=== PATIENT | female | born 1965 | race Caucasian/White ===

== ENCOUNTER → 2019-02-09 | Outpatient (CLI) | payer OTHER ==
--- NOTE | 2019-02-10 02:35 | MR ---
EXAMINATION TYPE: MR brain/cspine wo/w DATE OF EXAM: 02/09/2019 COMPARISON: HISTORY: Cervical herniated disc, Memory loss TECHNIQUE: Multiplanar, multisequence images of the brain and brainstem is performed without and with IV contras t, utilizing 7.5 mL intravenous Gadavist . FINDINGS: EXAMINATION TYPE: MR brain/cspine wo/w DATE OF EXAM: 02/09/2019 COMPARISON: NONE There is previous MR scan cervical spine 11/30/2017. HISTORY: 52-year-old female with neck pain, cervicalgia TECHNIQUE: 60 FINDINGS: Multiplanar multiecho imaging of the brain and cervical spine was performed without and wit h IV contrast. Ventricles have normal size. There is no mass effect nor midline shift. There is no sign of intracran ial hemorrhage. On the FLAIR images there are a few foci of increased signal in the periventricular w jerry matter in the frontal lobes. Total number is approximately 5 and largest measures 5 mm. The brai nstem is intact. Cerebellum appears intact. Corpus callosum is intact. Sella turcica appears normal. There is no evidence of cortical infarct. The contrast images show no pathologic enhancement. There is normal enhancement of the venous sinuses . Cervical vertebra have normal alignment. There is posterior disc bulging and herniation at C4-5 and C 5-6 and C6-7. There is developmentally adequate spinal canal and no significant spinal stenosis. The narrowest point of the spinal canal is 8 mm at C6-7. Cervical spinal cord has normal signal pattern. There is no edema. There is no focal bone destruction. Contrast images show no pathologic enhancement of the cervical spine. IMPRESSION: Scattered white matter high signal foci as above are nonspecific and could relate to chronic small ve ssel ischemia. I think demyelinating disease is less likely. There is posterior mild disc herniation from C4 to C7. There is increased disc herniation at all 3 le vels compared to old MR scan. No significant narrowing of the spinal canal. Normal cervical spinal co rd. There is some uncovertebral spurring and right-sided neural foraminal narrowing at C5-6. There is left side C6-7 neural foraminal narrowing due to uncovertebral spurring.
== END | disposition home or self-care (01) ==
LOC: RADMRIMAIN 12:23
PROVIDERS: ATTEND Psychiatry & Neurology Neurology
DX: M48.02 Spinal stenosis, cervical region (principal); M50.221 Other cervical disc displacement at C4-C5 level; R90.89 Other abnormal findings on diagnostic imaging of central nervous system; R41.3 Other amnesia
CPT/HCPCS: 70553; 72156; A9585

== ENCOUNTER → 2019-03-10 | Outpatient (CLI) | payer OTHER ==
[2019-03-10 12:38] VITALS: BP 134/77; PULSE 61; RESP 16
--- NOTE | 2019-03-10 14:15 | P.PAINCN ---
History of Present Illness - Reason for Consult Consult date: 03/10/19 - Chief Complaint Headaches - History of Present Illness This is a 53-year-old female who is referred to our clinic by her neurologist for bilateral occipital nerve blocks. She states that her headaches significantly worsen in 2014 after she fell. The headaches are in the bilateral posterior head and occiput, her pain is worse on the left side versus the right side. She also complains of a stiff neck she has done physical therapy which is marginally helped. For these headaches she has taken Advil and Flexeril daily when necessary. Given that her headaches continue to not be well controlled, her neurologist Center here for occipital nerve blocks. Of note she does have a history of alcohol abuse, and once avoid opiate medications which I agree with. Past Medical History Past Medical History: Cancer, Osteoarthritis (OA) History of Any Multi-Drug Resistant Organisms: None Reported Past Surgical History: Appendectomy, Breast Surgery Additional Past Surgical History / Comment(s): mastectomy 2006 Past Anesthesia/Blood Transfusion Reactions: No Reported Reaction Past Psychological History: Anxiety, Depression, PTSD Smoking Status: Former smoker Past Alcohol Use History: Heavy Additional Past Alcohol Use History / Comment(s): recovering alcoholic x6 years Past Drug Use History: Marijuana Additional Drug Use History / Comment(s): "marijuana a long time ago" - Past Family History Father Family Medical History: Cancer, Congestive Heart Failure (CHF), Hypertension Additional Family Medical History / Comment(s): alcohol abuse, gout bladder cancer Medications and Allergies Home Medications Medication Instructions Recorded Confirmed Type Cyclobenzaprine [Flexeril] 5 mg PO BID PRN 03/10/19 03/10/19 History Allergies Allergy/AdvReac Type Severity Reaction Status Date / Time No Known Allergies Allergy Verified 03/10/19 12:18 Physical Exam Vitals: Vital Signs Pulse Resp BP Pulse Ox 03/10/19 12:21 61 16 134/77 98 Intake and Output 03/09/19 03/10/19 03/10/19 22:59 06:59 14:59 Other: Weight 61.235 kg Vital Signs: Reviewed in EMR GENERAL: Well appearing, in no acute distress, PSYCH: Mood and affect is appropriate. Awake, alert, and oriented SKIN: Skin color, texture, turgor normal, no rashes or lesions HEENT: Normocephalic, atraumatic. EOM intact CV: No pedal edema RESP: Respirations are unlabored, no audible wheezing GI: Abdomen non-distended MUSCULOSKELETAL: Bilateral upper and lower extremity strength is normal and symmetric. No atrophy or tone abnormalities are noted. Neck: Some tenderness to palpation is a high cervical paraspinals, she does have some tenderness with deep palpation the occiput region. Extremities: Peripheral joint ROM is full and pain free without obvious instability or laxity in all four extremities. No edema or skin discolorations noted. Gait: Gait is anantalgic NEUR: No loss of sensation is noted. Cranial nerves are grossly intact. Results Results: Brain and cervical MRI from 02/09/2019. There is posterior mild disc herniation from C4 to C7. There is some uncovertebral spurring and right-sided neural foraminal narrowing at C5-C6. There is left-sided C6-C7 neural foraminal narrowing due to uncovertebral spurring. Assessment and Plan Assessment: Assessment: 1. Occipital headaches 2. Cervical spondylosis 3. History of alcohol abuse, in remission Plan: 1. Explanation: I explained to her that headaches and be difficult to treat, however symptoms with headaches in the occiput, would be consistent with occipital neuralgia, given this information she would like to proceed with occipital nerve blocks. 2. Opioid agreement: None 3. Counseling: She should continue to be active 4. Procedures: In occipital block, she would prefer to have the procedures done without any steroid 5. Consultations: None 6. Investigations: Was reviewed 7. Medications: Encouraged patient to have discussions with primary care physician 8. Disposition: For her procedure, she may do the procedure without sedation , PQRS Measure Charge Sheet Measure #226: Tobacco Use: Screen & Cessation Intervention: Pt not a tobacco user Measure #111: Pneumonia Vaccination: Pneumococcal vaccine NOT administered or previously given Measure #47: Advance Care Plan: Advance care planning discussed & documented, pt chose/unable to give Measure #131: Pain Assessment & Follow-up: Pain positive & plan documented, Follow-up scheduled Measure #431: Unhealthy Alcohol Use Preventative Care & Scrn: Patient not identified as an unhealthy alcohol user PQRS Narrative: Smoking Status Former smoker Blood Pressure 134/77 Pain Intensity [Bilateral 2 Posterior Head] Scale Used Numeric (1 - 10) Hx Alcohol Use (MH) Yes: hx of etoh abuse 6 years ago Home Medications: Ambulatory Orders Cyclobenzaprine [Flexeril] 5 mg PO BID PRN 03/10/19
== END ==
LOC: PNWHC3 12:11
PROVIDERS: ATTEND Student in an Organized Health Care Education/Training Program
DX: R51 Headache (principal); M47.812 Spondylosis without myelopathy or radiculopathy, cervical region; F10.11 Alcohol abuse, in remission; Z87.891 Personal history of nicotine dependence; Z79.899 Other long term (current) drug therapy
CPT/HCPCS: 99201

== ENCOUNTER 2019-03-30 07:35 | Day surgery (SDC) | payer OTHER ==
[2019-03-27 08:57] VITALS: BMI 21.9
[~2019-03-30 07:35] MED LIST: LACTATED RINGERS 1,000 ML IV SCH
[2019-03-30 08:25] VITALS: TEMP 97.7
--- NOTE | 2019-03-30 09:47 | P.PCN ---
Date of Procedure: 03/30/19 Procedure(s) Performed: Pre-operative diagnosis: Bilateral occipital neuralgia Post Operative Diagnosis same Procedure: Bilateral occipital nerve block ANESTHESIA: none EBL: Minimal PROCEDURE INDICATION: The patient with neck pain and headache secondary to occipital neuralgia unresponsive to conservative treatments. PROCEDURE DESCRIPTION / TECHNIQUE: The patient was seen and identified in the preoperative area. Risks, benefits, complications, and alternatives were discussed with the patient, the patient agreed to proceed with the procedure and signed the consent. IV was started. Vital signs remained stable throughout the procedure. Patient was taken to the OR and time out was completed. The patient was placed in the seated position on the procedure table. The cervical area and Bilateral occiptial area were prepped with alcohol swab. Vital signs were closely monitored during the procedure. The Bilateral occiptal ridge was palpated and was then accessed with a 25 G needle. Then after negative aspiration, 3 ml of the block solution containing 2 ml of ropivacaine 0.5% and Depo-Medrol 40 mg was injected on need side. A total of 80 mg of Depo-Medrol was used Needle was withdrawn intact. Patient tolerated procedure well. No acute complications.
[2019-03-30 09:52] VITALS: BP 124/71; PULSE 71; RESP 16
== END 2019-03-30 09:40 | disposition home or self-care (01) ==
LOC: ORPAIN 07:35
PROVIDERS: ATTEND Anesthesiology
DX: M54.81 Occipital neuralgia (principal); M47.892 Other spondylosis, cervical region; F10.11 Alcohol abuse, in remission; M19.90 Unspecified osteoarthritis, unspecified site; Z90.10 Acquired absence of unspecified breast and nipple; F41.9 Anxiety disorder, unspecified; F32.9 Major depressive disorder, single episode, unspecified; F43.10 Post-traumatic stress disorder, unspecified; Z87.891 Personal history of nicotine dependence; Z82.49 Family history of ischemic heart disease and other diseases of the circulatory system; Z80.52 Family history of malignant neoplasm of bladder; Z81.1 Family history of alcohol abuse and dependence
CPT/HCPCS: 64405; J1030

== ENCOUNTER 2019-04-27 06:36 | Day surgery (SDC) | payer OTHER ==
[2019-04-17 15:11] VITALS: BMI 21.6
[~2019-04-27 06:36] MED LIST changes: +BUPIVACAINE (PF) 0.5% 30 ML VIAL ONE; +methylPREDNISolone ACETATE 40 MG/ML 1 ML VIAL ONE
[2019-04-27 06:59] VITALS: RESP 16; TEMP 98.1
[2019-04-27 07:47] VITALS: BP 121/80; PULSE 73
--- NOTE | 2019-04-27 08:18 | P.PCN ---
Date of Procedure: 04/27/19 Procedure(s) Performed: Pre-operative diagnosis: Bilateral occipital neuralgia Post Operative Diagnosis same Procedure: Bilateral occipital nerve block ANESTHESIA: none EBL: Minimal PROCEDURE INDICATION: The patient with neck pain and headache secondary to occipital neuralgia unresponsive to conservative treatments. PROCEDURE DESCRIPTION / TECHNIQUE: The patient was seen and identified in the preoperative area. Risks, benefits, complications, and alternatives were discussed with the patient, the patient agreed to proceed with the procedure and signed the consent. IV was started. Vital signs remained stable throughout the procedure. Patient was taken to the OR and time out was completed. The patient was placed in the seated position on the procedure table. The cervical area and Bilateral occiptial area were prepped with alcohol swab. Vital signs were closely monitored during the procedure. The Bilateral occiptal ridge was palpated and was then accessed with a 25 G needle. Then after negative aspiration, 3 ml of the block solution containing 2 ml of ropivacaine 0.5% and Depo-Medrol 40 mg was injected on need side. A total of 80 mg of Depo-Medrol was used Needle was withdrawn intact. Patient tolerated procedure well. No acute complications.
== END 2019-04-27 07:55 | disposition home or self-care (01) ==
LOC: ORPAIN 06:36
PROVIDERS: ATTEND Anesthesiology
DX: M54.81 Occipital neuralgia (principal); M50.30 Other cervical disc degeneration, unspecified cervical region
CPT/HCPCS: 64405

== ENCOUNTER 2019-06-15 08:01 | Day surgery (SDC) | payer OTHER ==
[2019-06-12 11:20] VITALS: BMI 20.9
[~2019-06-15 08:01] MED LIST changes: -BUPIVACAINE (PF) 0.5% 30 ML VIAL ONE; +LIDOCAINE 1% 20 ML VIAL (10MG/ML) FOR IV START INTRADERMA PRN; -methylPREDNISolone ACETATE 40 MG/ML 1 ML VIAL ONE
[2019-06-15] MEDS ORDERED: TRIAMCINOLONE ACETONIDE 40 MG/ML 1 ML VIAL ONE (08:29)
[2019-06-15] MEDS ORDERED: ROPIVACAINE 5MG/ML 20ML VIAL ONE (08:29)
[2019-06-15] MEDS ORDERED: IV FLUID CONTINUATION 1,000 ML IV ONE (09:52)
--- NOTE | 2019-06-15 10:02 | P.PCN ---
Date of Procedure: 06/15/19 Procedure(s) Performed: Preoperative diagnoses= 1-bilateral Greater occipital neuralgia Postoperative diagnoses= same as preoperative diagnosis. Procedure= Bilateral Greater occipital nerve block Anesthesia= none Estimated blood loss=minimal. Procedure indication= the patient had a history of severe chronic neck pain ,and headache, diagnosed with occipital neuralgia exam was positive for severe tenderness over the occipital nerve bilaterally, she will be a good candidate occipital nerve block, patient failed conservative management Procedure description= the patient was seen and identified in the preoperative holding area, risks and benefits and alternative of the procedure and possible complications discussed with the patient, and he agreed with the preceding, patient signed the consent, an IV was started, and vital signs were monitored and were stable throughout the procedure, patient was placed in the sitting position or table and the neck area was prepped and draped with a sterile fashion, vital signs were closely monitored during the procedure, 25-gauge needle advanced 1 inch lateral to the occipital protuberance on the right side, at the location of the right occipital nerve , then after negative aspiration for heme and CSF and there was no paresthesia during the injection, 6 ml of Robivacaine 0.5% and 40 mg of Kenalog injected after negative aspiration, the needle removed, and the entire same procedure was repeated for the left Greater occipital nerve. And after I did the block on the left side, when I removed the needle and found and that part of the needle still under the skin, multiple attempts done to remove it was not successful, then I made small incision using 11 blade, I did try to remove the needle with the forceps was not successful by using fluoroscopy guidance, I was able to visualize the needle with the fluoroscopy ,but I was not able to remove it, then the incision closed using 3-0 Vicryl, and Band-Aid, and I consulted the spine surgeon Dr. Endy Brown , and he will see the patient today and he will remove the foreign body ,the patient transported to recovery room in stable condition . Complications= retained foreign body(part of the 25-gauge needle ) in the left occipital area under the skin.
--- NOTE | 2019-06-15 10:32 | FL ---
Fluoroscopy HISTORY: Pain 69 seconds fluoroscopy time supplied to the referring clinician. 4 intraoperative C-arm images docum ent the procedure. See dictated report from anesthesia.
[2019-06-15] MEDS ORDERED: MIDAZOLAM 2 MG/2 ML VIAL ONE (12:05)
[2019-06-15] MEDS ORDERED: DEXAMETHASONE SOD PHOS (MDV) 100 MG/10 ML VIAL ONE (12:05)
[2019-06-15] MEDS ORDERED: PROPOFOL 10 MG/ML 20 ML VIAL IV ONE (12:05)
[2019-06-15] MEDS ORDERED: LIDOCAINE 1% INJ 10MG/ML (20 ML MDV) ONE (12:05)
[2019-06-15] MEDS ORDERED: PHENYLEPHRINE-0.9% NACL SYG 1 MG/10 ML SYRINGE ONE (12:05)
[2019-06-15] MEDS ORDERED: SUCCINYLCHOLINE CHLORIDE 100 MG/5 ML SYR IV ONE (12:05)
[2019-06-15] MEDS ORDERED: ONDANSETRON 4 MG/2 ML VIAL ONE (12:05)
--- NOTE | 2019-06-15 12:07 | P.HPOR ---
History of Present Illness H&P Date: 06/15/19 Chief Complaint: Neck pain with retained foreign body status post occipital injection Patient is very pleasant 53-year-old female with long-standing history of neck pain and headaches. Patient had been treated conservatively in the past for her neck pain and for her headaches with various degrees of relief. She had been referred to interventional pain management and had undergone occipital blocks in the past with good results. She is admitted today for repeat occipital injections with Dr. Blandon. I spoke with Dr. Blandon in regards to this as she was having today a procedure and had an occipital block on the right side without incident but when doing the block on the left side when I removed the needle they noted that part of the needle had broken off underneath the skin at the posterior area of her neck below her occiput. He felt that the needle was quite superficial and he tried to remove it but was unable to. We are counseled in this regard for assistance for removal of the foreign body and posterior neck. During the procedure there was no evidence of any neural involvement. There is no epidural injection. The patient denies any new changes in her upper extremity is. She has some pain at her neck which was around the new incision that she had when he tried removed needle also the same as her chronic issues in general. She is not having new symptoms. Review of Systems Denies any new weakness numbness or tingling. Denies any change in neurologic status. Denies any nausea or vomiting denies any chest pain shortness breath Past Medical History Past Medical History: Cancer, Osteoarthritis (OA) Additional Past Medical History / Comment(s): BREAST CANCER , NECK PAIN AND HEADACHES ,. History of mastectomy. Remote history of alcohol History of Any Multi-Drug Resistant Organisms: None Reported Past Surgical History: Appendectomy, Breast Surgery, Tubal Ligation, Uterine Ablation Additional Past Surgical History / Comment(s): LEFT mastectomy 2006, LAPAROSCOPIC EXAM ,LEFT BREAST RECONSTRUCTION, Past Anesthesia/Blood Transfusion Reactions: Motion Sickness, Postoperative Nausea & Vomiting (PONV) Smoking Status: Former smoker - Past Family History Father Family Medical History: Cancer, Congestive Heart Failure (CHF), Deep Vein Thrombosis (DVT), Hypertension Additional Family Medical History / Comment(s): alcohol abuse, gout, bladder cancer Medications and Allergies Home Medications Medication Instructions Recorded Confirmed Type Cyclobenzaprine [Flexeril] 5 mg PO BID PRN 03/10/19 06/15/19 History Allergies Allergy/AdvReac Type Severity Reaction Status Date / Time No Known Allergies Allergy Verified 06/15/19 08:16 Physical Examination Osteopathic Statement: *. No significant issues noted on an osteopathic structural exam other than those noted in the History and Physical/Consult. - C Spine: dermatomal strength & reflexes bilateral Shoulder strength: flexion: 5/5 (At the patient's neck there is dressing over the left posterior neck. There is no obvious drainage. There is no purulence. Her upper extremity have full active and passive range of motion with 5 out of 5 muscle strength. There is no neurologic deficit. 2+ over 4 deep tendon reflexes. No hyperreflexia. Negative Ema's.) Assessment and Plan Assessment: Retained foreign body at the soft tissue posterior cervical spine status post occipital injection today with pain management Chronic neck pain with headaches and occipital headaches Plan: Retained foreign body at the soft tissue posterior cervical spine status post occipital injection today with pain management Chronic neck pain with headaches and occipital headaches Unfortunately the patient had an incident today during her interventional pain management procedure where a small portion of the needle broke off at her soft tissue after her occipital injection. There were attempts with pain management to remove the needle however there were unsuccessful and she still has retained foreign body. I think that we should remove the foreign body surgically in the operating room. This would give us the best chance of removal with the patient comfortable and while minimizing accessory damage. I discussed this with patient at length she understands that this is not meant to treat her chronic neck issues and neck pain. Our procedure is to remove the foreign body and she understands that this will require some dissection into the soft tissue for this. We will be using C-arm guidance as well. I anticipate that the patient will be able to mobilize and be able to be discharged home postoperatively after recovery in post anesthesia care unit. I discussed case with Dr. Blandon as well. I discussed the risks, patient alternatives and benefits and the patient agrees to proceed with surgical intervention for removal of foreign body posterior cervical spine. We'll proceed as soon as possible.
[2019-06-15] MEDS ORDERED: ceFAZolin 1,000 MG VIAL IVPB ONE (12:31)
[2019-06-15] MEDS ORDERED: LACTATED RINGERS 1,000 ML IV ONE (12:44)
[2019-06-15] MEDS ORDERED: LIDOCAINE 2% INJ 20 MG/ML SQ ONE (12:49)
[2019-06-15] MEDS ORDERED: LIDOCAINE 0.5%-EPI 1:200,000 50 ML VIAL SQ ONE (12:50)
[2019-06-15] MEDS ORDERED: ACETAMINOPHEN TAB 325 MG TAB PO PRN (13:42)
[2019-06-15] MEDS ORDERED: IBUPROFEN 600 MG TAB PO PRN (13:42)
[2019-06-15] MEDS ORDERED: ONDANSETRON 4 MG/2 ML VIAL IVP PRN (13:42)
[2019-06-15] MEDS ORDERED: HYDROmorphone 0.5 MG/0.5 ML SYRINGE IVP PRN (13:42)
[2019-06-15] MEDS ORDERED: HYDROcodone/APAP 5-325MG 1 EACH TAB PO PRN (13:42)
[2019-06-15] MEDS ORDERED: BENZOCAINE/MENTHOL LOZENG 1 EACH LOZENGE MUCOUS MEM PRN (13:42)
[2019-06-15] MEDS ORDERED: KETOROLAC 30 MG/ML 1 ML VIAL IVP PRN (13:43)
[2019-06-15] MEDS ORDERED: SODIUM CHLORIDE 0.9% 1,000 ML IV SCH (13:45)
[2019-06-15 13:50] VITALS: TEMP 99.2
--- NOTE | 2019-06-15 13:56 | P.OP ---
Date of Procedure: 06/15/19 Preoperative Diagnosis: Retained foreign body posterior cervical neck soft tissues Chronic neck pain with occipital headaches Postoperative Diagnosis: Same Anesthesia: GETA Pathology: none sent Description of Procedure: BRIEF OPERATIVE NOTE Preoperative Diagnosis:Retained foreign body posterior cervical neck soft tissues Chronic neck pain with occipital headaches Postoperative Diagnosis:Retained foreign body posterior cervical neck soft tissues Chronic neck pain with occipital headaches Procedure: Removal of retained foreign body (needle) from posterior cervical spine soft tissue, deep Surgeon: Dr. Brown Customs [employer] Border [employer] Officer: Domenic Connolly is present throughout the entire the case persistence during positioning, dissection, exposure, visualization, and all crucial elements of the case as well as closure. Anesthesia: General anesthesia per Dr. Laurent Estimated blood loss: Approximately 75 mL Complications: None apparent Components implanted: None Fluoroscopy time: Approximately 1-1/2 minutes Disposition: To recovery room in good stable condition. OPERATIVE INDICATIONS The patient is very pleasant 53-year-old female who has long-standing history of neck pain and occipital pain with headaches. Patient had evaluation and presented today to the pain clinic for occipital injections. She had undergone injections in the past which had given her bit benefit. She had her procedure as per her note with Dr. Blandon however upon removing the needle from the left side after her occipital injection they found that the needle had broken off and she had retained the needle in her soft tissue. C-arm imaging confirmed this. They did try to remove the needle at the time of the injection but retrievable attempts were unsuccessful. We're counseled in regard to removing the needle foreign body from the posterior cervical soft tissues. We're able to see the patient very quickly and prepare her for surgical removal of the needle. The images were reviewed and the needle was somewhat deep into the soft tissue and into the musculature but not near any neurologic structures and did not seem to pose significant risk for any of the neurologic structures or vessels. I felt that we could perform exploration of the wound area and removal of the needle in the operating room with surgical intervention. We discussed various treatment options including surgery, and the patient wishes to proceed with surgery We discussed the risk, patient's alternatives and benefits of surgery including but not limited to, risk of bleeding risk of infection, risk of need for further surgery, risk of decreased, loss of motion, muscle function, malunion nonunion, hardware failure, nerve damage, paralysis, heart attack, and . OPERATIVE SUMMARY After discussing all the risks, patient alternatives and benefits at length, the patient elected to proceed with surgical intervention, signed informed consent, and presented for their procedure. The patient was seen and examined in the preoperative holding area and the surgical site was marked. The patient was given antibiotics and brought to the operating room. The patient was sedated and intubated by anesthesia in standard sterile fashion. The patient was positioned on the operating room table in a prone position being careful to pad any bony prominences and pressure points. She was on longitudinal chest rolls with her head and face and a good neutral alignment and positioning and in a well-padded longwall headgate operator to keep her neck in good neutral alignment and position Once the airway and C-spine were stabilized the patient's right arm was padded and tucked at her side as she had some limited motion at her right shoulder. Her left upper extremity was able to placed in a 9090 position on a well-padded well molded arm gan., with her shoulders gently taped. The head was placed gently with the neck in good neutral alignment and position. We were careful to maintain the patient's cervical spine and good neutral alignment and position throughout. I had to shave small part of her tear posteriorly in order to get good surgical field in sterile position. The patient was prepped and draped in a normal standard fashion with the post erior cervical area exposed. An appropriate timeout and keystone protocol performed. We were able to proceed with the surgery. I was able to remove the stitches that were placed and the 1-1/2 cm incision earlier. The incision was clean. The stitches were removed. I made some attends for a gross evaluation of the incision site in the wound. I was able to probe into the area with metastases and with hemostats. There is some bleeding at the site. I was able to cauterize this with Bovie electric cauterization. The needle was not visualized. We had in the room C-arm images of the needle itself as well. We brought in C-arm guidance and it was easy to see that the needle was somewhat deep into the muscular tissue at the posterior neck. It did not seem to be moving into any position to cause any neurologic risk or any vascular risk. I decided to extend the incision to approximately 2 cm transversely at the site as the initial incision had been transverse. I was able to dissect down into the subcu tissue and then down into the muscle tissue as well. There are some bleeding that I was able to cauterize appropriately. It took some dissection deep into the cervical musculature. C-arm guidance was utilized multiple times in order to them straight appropriate position of the inch mentation on the needle. As able to eventually get a hold of the needle near the end with a hemostat area it was very difficult to visualize. I was able to dissect out further portions of the needle so that it became more mobile. The needle started to been somewhat and I had good metal bonding assembler of the needle. I was able to then remove the needle in total. The needle was bent where the hemostat was holding. I was able to see the tip of the needle as well as the broken hub. The needle was intact. C-arm guidance was again utilized which showed no further remnants of any foreign body or any needle in the cervical soft tissue. With the needle fully removed and no further foreign body within the tissue, the wound was copiously irrigated and suctioned dry. During the procedure we try to maintain as much bony structures possible and limit the dissection as much as possible. We're able to close the subcu tissue with 2-0 Vicryl. Subcuticular tissues closed with 4-0 Vicryl wound is clean and dried and dressed with exophin glue and Silvadene dressing. The patient was woken up by anesthesia, extubated, transferred back gently to their hospital bed and brought to the recovery room in good stable condition. The patient will be able to be discharged to home after appropriate postope rative care, medical management and monitoring in the postanesthesia care unit. We will continue to follow them closely about the postoperative course.
--- NOTE | 2019-06-15 14:04 | XR ---
Limited cervical spine HISTORY: Foreign body removal 3 intraoperative C-arm images document the procedure
--- NOTE | 2019-06-15 14:05 | FL ---
Fluoroscopy HISTORY: Pain 61 seconds fluoroscopy time supplied to the referring clinician. 3 intraoperative C-arm images docum ent the procedure. See dictated report from anesthesia.
[2019-06-15] MEDS ORDERED: IBUPROFEN 200 MG TAB PO ONE (14:41)
[2019-06-15 15:21] VITALS: BP 119/78; PULSE 90; RESP 18
== END 2019-06-15 16:12 | disposition home or self-care (01) ==
LOC: ORPAIN 08:01
PROVIDERS: ATTEND Specialist
DX: G89.29 Other chronic pain (principal); M54.81 Occipital neuralgia; T81.50 Unspecified complication of foreign body accidentally left in body following procedure; M19.90 Unspecified osteoarthritis, unspecified site; Z85.3 Personal history of malignant neoplasm of breast; Z90.12 Acquired absence of left breast and nipple; Z98.51 Tubal ligation status; Z90.49 Acquired absence of other specified parts of digestive tract; Z87.891 Personal history of nicotine dependence; Z82.49 Family history of ischemic heart disease and other diseases of the circulatory system; Z80.52 Family history of malignant neoplasm of bladder; Z81.1 Family history of alcohol abuse and dependence
CPT/HCPCS: 20520; 72040; 64405; J2001 ×2; J2250; J3301; J2405; J0690; J1100; J2370; J0330; J2704; J2795

== ENCOUNTER → 2019-06-29 | Outpatient (CLI) | payer OTHER ==
[2019-06-29 12:44] VITALS: BP 109/71; PULSE 84; RESP 16
--- NOTE | 2019-06-29 13:09 | P.PN ---
Progress Note - Text Progress Note Date: 06/29/19 Progress note: 53-year-old female who presents for follow-up after bilateral occipital nerve blocks. She had an issue on the left side where the tip of the needle was broken off into the skin. She had Dr. Brown remove it successfully. Overall she's doing well with no pain or incidence of occipital neuralgia. She denies any new symptoms. She denies any gait abnormalities bowel or bladder incontinence. Overall she is doing better. She is concerned with follow-up r egarding return of her previous symptoms. We discussed repeating the procedure, also addressing possibly C2-C3 facet joint injections. Patient will contact clinic if and when symptoms return. Review of Systems: 1- Constitutional: No chills , no fever , no night sweats , no change of appetite, no lethargy 2- Ears: No ear ache, no ear discharge , no change in hearing 3-Nose, Mouth ,Throat; No bleeding gums, no sore throat , no epistaxis , no hoarseness , no voice change 4-Cardiovascular: Denies chest pain, no palpitation , no paroxysmal nocturnal dyspnea , no leg edema 5-Respiratory: Denies cough , no dyspnea , no hemoptysis , no sleep apnea, no wheezing 6-Gastrointestinal: No abdominal pain , no bloating , no change in bowel habits 7-Genitourinary: No hematuria , no discharge 8-Musculoskeletal: No gait dysfunction , report low back pain, reported lower extremities numbness and tingling sensation 9- Neurological: No ataxia , no aphasia ,no balance difficulties, no change in visions , no change in speech , no tremor . 10-Psychatric: depression , no suicidal ideation, 11-Hematologic: No easy bleeding, no easy brusing. 12-Integumentary: No brttle nails, no change hair , no hirsutism no depigmentation , no foot/leg ulcers . Vital Signs: Reviewed in EMR GENERAL: Well appearing, in no acute distress, PSYCH: Mood and affect is appropriate. Awake, alert, and oriented SKIN: Skin color, texture, turgor normal, no rashes or lesions HEENT: Normocephalic, atraumatic. EOM intact CV: No pedal edema RESP: Respirations are unlabored, no audible wheezing GI: Abdomen non-distended MUSCULOSKELETAL: Bilateral upper and lower extremity strength is normal and symmetric. No atrophy or tone abnormalities are noted. Neck: Some tenderness to palpation is a high cervical paraspinals, she does have some tenderness with deep palpation the occiput region. Extremities: Peripheral joint ROM is full and pain free without obvious instability or laxity in all four extremities. No edema or skin discolorations noted. Gait: Gait is unremarkable. NEUR: No loss of sensation is noted. Cranial nerves are grossly intact. Results Results: Brain and cervical MRI from 02/09/2019. There is posterior mild disc herniation from C4 to C7. There is some uncovertebral spurring and right-sided neural foraminal narrowing at C5-C6. There is left-sided C6-C7 neural foraminal narrowing due to uncovertebral spurring. Assessment and Plan Assessment: Assessment: 1. Occipital headaches 2. Cervical spondylosis 3. History of alcohol abuse, in remission Plan: 1. Explanation: I explained to her that headaches and be difficult to treat, however symptoms with headaches in the occiput, would be consistent with occipital neuralgia, given this information she would like to proceed with occipital nerve blocks. 2. Opioid agreement: None 3. Counseling: She should continue to be active 4. Procedures: None at the moment consider bilateral C2-C3 facet joint injections. 5. Consultations: None 6. Investigations: Was reviewed 7. Medications: Encouraged patient to have discussions with primary care physician 8. Disposition: Patient will contact clinic and return as necessary. , PQRS Measure Charge Sheet Measure #226: Tobacco Use: Screen & Cessation Intervention: Pt not a tobacco user Measure #111: Pneumonia Vaccination: Pneumococcal vaccine NOT administered or previously given Measure #47: Advance Care Plan: Advance care planning discussed & documented, pt chose/unable to give Measure #131: Pain Assessment & Follow-up: Pain positive & plan documented, Follow-up scheduled Measure #431: Unhealthy Alcohol Use Preventative Care & Scrn: Patient not identified as an unhealthy alcohol user PQRS Narrative: Smoking Status Former smoker Blood Pressure 134/77 Pain Intensity [Bilateral 2 Posterior Head] Scale Used Numeric (1 - 10) Hx Alcohol Use (MH) Yes: hx of etoh abuse 6 years ago
== END | disposition home or self-care (01) ==
LOC: PNWHC3 12:16
PROVIDERS: ATTEND Anesthesiology
DX: R51 Headache (principal); M47.812 Spondylosis without myelopathy or radiculopathy, cervical region; Z91.419 Personal history of unspecified adult abuse; Z87.891 Personal history of nicotine dependence
CPT/HCPCS: 99211

== ENCOUNTER → 2020-11-03 | Outpatient (CLI) | payer OTHER ==
--- NOTE | 2020-11-03 19:09 | CONS ---
CONSULTATION DATE OF SERVICE: 11/03/2020 55-year-old lady has been evaluated in the sleep center for sleep problems, which include snoring, awakening from sleep, significant excessive daytime sleepiness. Vivid dreams. HISTORY OF PRESENT ILLNESS/SLEEP-WAKE EVALUATION: The patient had a sleep study in another institution about 8 years ago which was negative for obstructive sleep apnea-hypopnea syndrome. SLEEP SCHEDULE: Her sleep schedule presently on week days from 8:30/9 p.m. to 5 a.m. and on weekends until 7:00 am. FALLING ASLEEP: Presently, she does not have significant problems with falling asleep, although has TV set in bedroom. DURING SLEEP: She sleeps from the back and side positions with mild snoring and awakenings from sleep with episodes of panic attack, heartburn and nocturia. Positive history of hypnagogic hallucinations. DURING THE DAY/SLEEP WAKE EVALUATION: In the morning patient wakes up tired, has difficulties to pay attention, falling asleep during the day, has problems with the memory, concentration, irritability, depression, anxiety, sexual dysfunction. [place] Sleepiness Scale significantly increased to 16. On days off, the patient is ready to take naps 3 or 4 times a day. Positive history of dreaming during naps. The patient works in the store as a cashiers supervisor and sometimes when she is counting some money, she may feel weakness and may loose some money. Differential diagnosis should include possibility of cataplexy. PAST MEDICAL HISTORY: Positive for seasonal allergies, depression, anxiety, mitral valve prolapse, acid reflux, left side breast carcinoma. Alcohol abuse in the past. PAST SURGICAL HISTORY: Left-sided mastectomy, hysterectomy, appendectomy. MEDICATIONS: Pristiq 50 mg once in the evening, and Benadryl medication for anxiety, patient does not remember the name. SOCIAL HISTORY: Positive for smoking for about 30 pack years, recently quit. Alcohol consumption: None at the present time. History of alcohol abuse in the past. FAMILY HISTORY: Positive for narcolepsy by 2 uncles on mother's side, heart problems, liver problems, and ulcers. REVIEW OF SYSTEMS: Awakenings from sleep, significant excessive daytime sleepiness. PHYSICAL EXAMINATION: GENERAL: lady without distress. BP 142/85, HR 65, RR 20, height 5 feet 6 inches, weight 153.4, temperature 97.5, oxygen saturation at room air 98%. BMI 24.6. HEENT: PERRLA, EOMI. Oropharynx extremely low position of soft palate. Mallampati 4. NECK: 14-1/2 inches in circumference. Neck: Supple, no JVD. Thyroid is not palpable. LUNGS: Clear to percussion and to auscultation. Good air exchange. No wheezing or rhonchi. HEART: S1, S2 regular. No murmurs, gallops, or rubs. ABDOMEN: Soft and nontender. Bowel sounds are present. No organomegaly appreciated. EXTREMITIES: No clubbing or cyanosis. CUTTER PLAST[employer] ROLLS: Awake, alert, and oriented X3. Cranial nerves 2 to 7 intact. There is no fasciculation or atrophy. noted. No focal deficits observed. IMPRESSION: 1. Mild snoring. Extremely low position of soft palate, episodes of awakenings from sleep. Possible obstructive sleep apnea-hypopnea syndrome, but a sleep study in the past was negative for obstructive sleep apnea-hypopnea syndrome at another institution. 2. Significant excessive daytime sleepiness. [place] Sleepiness Scale significantly increased to 16. On days off patient may take up to 3 or 4 naps. Possibly positive history of hypnagogic hallucinations, positive history of dreaming during naps. Positive family history of narcolepsy from mother side. Possibility of cataplexy. Patient losing money while work as a cashiers supervisor. Differential diagnosis include narcolepsy, possibly with cataplexy. PLAN: 1. Polysomnography for evaluation of patient's breathing during sleep. 2. Multiple sleep latency test if the sleep study will be negative for obstructive sleep apnea-hypopnea syndrome. 3. Sleep hygiene with regular time in bed for at least 7-1/2 to 8 hours. 4. No driving if feeling sleepiness. Thank you very much for referring this patient for consultation. Sincerely, Jesus Helms MD, PhD, FAASM Diplomat of [employer] [employer] Sleep Medicine Board of [place] [employer] Roll Up Operator of [facility] [place] MMODL / YOUNGN: [id number] /
== END | disposition home or self-care (01) ==
LOC: SLEEP 10:29
PROVIDERS: ATTEND Internal Medicine
DX: G47.8 Other sleep disorders (principal); R06.83 Snoring; F32.9 Major depressive disorder, single episode, unspecified; F41.9 Anxiety disorder, unspecified; Z91.09 Other allergy status, other than to drugs and biological substances; Z85.3 Personal history of malignant neoplasm of breast; Z87.891 Personal history of nicotine dependence; Z86.59 Personal history of other mental and behavioral disorders; Z90.12 Acquired absence of left breast and nipple; Z79.899 Other long term (current) drug therapy
CPT/HCPCS: 99211

== ENCOUNTER → 2020-11-11 | Outpatient (CLI) | payer OTHER ==
--- NOTE | 2020-11-11 12:02 | ECHOS ---
STRESS ECHOCARDIOGRAM INDICATION: Shortness of breath. CLINICAL INFORMATION: Baseline EKG shows sinus rhythm, normal axis, normal intervals. Patient exercised on Frantz protocol for a total of 9.5 minutes, achieving 11 METS, 82% of predicted maximal heart rate without chest pain or diagnostic ST-segment depression. CONCLUSIONS: 1. Good exercise tolerance. 2. Inconclusive EKG part of the stress test due to inability to attain target heart rate. MMODL / IJN: [id number] /
== END | disposition home or self-care (01) ==
LOC: RADNMMAIN 10:29
PROVIDERS: ATTEND Family Medicine
DX: R06.02 Shortness of breath (principal)
CPT/HCPCS: 93017

== ENCOUNTER → 2020-11-14 | Outpatient (CLI) | payer OTHER ==
--- NOTE | 2020-11-15 09:24 | ECHOF ---
Referral Reason:R06.02 shortness of breath, fatigue MEASUREMENTS -------- HEIGHT: 165.1 cm WEIGHT: 70.3 kg BP: IVSd: 1.0 cm (0.6 - 1.1) LVIDd: 3.9 cm (3.9 - 5.3) LVPWd: 1.1 cm (0.6 - 1.1) IVSs: 1.4 cm LVIDs: 2.9 cm LVPWs: 1.5 cm MV EXCURSION: 18.612 mm (> 18.000) MV EF SLOPE: 83 mm/s (70 - 150) EPSS: 0.3 cm MV E Iam: 0.54 m/s MV DecT: 246 ms MV A Iam: 0.52 m/s MV E/A Ratio: 1.03 RAP: 5.00 mmHg RVSP: 20.64 mmHg FINDINGS -------- Sinus rhythm. This was a technically good study. Pt has silcone breast inplants. LV size, wall thickness and systolic function are normal, with an EF greater than 55%. The left andrew tricular size is normal. The right ventricle is normal in size. Normal LA size by volume 22+/-6 ml/m2. The right atrial size is normal. The aortic valve is trileaflet, and appears structurally normal. No aortic stenosis or regurgitation. Mild mitral regurgitation is present. Mild tricuspid regurgitation present. Right ventricular systolic pressure is normal at < 35 mmHg. There is no pulmonic regurgitation present. There is no pericardial effusion. CONCLUSIONS -------- 1. Pt has silcone breast inplants. 2. LV size, wall thickness and systolic function are normal, with an EF greater than 55%. 3. The left ventricular size is normal. 4. The right ventricle is normal in size. 5. Normal LA size by volume 22+/-6 ml/m2. 6. The right atrial size is normal. 7. The aortic valve is trileaflet, and appears structurally normal. No aortic stenosis or regurgitati on. 8. Mild mitral regurgitation is present. 9. Mild tricuspid regurgitation present. 10. There is no pericardial effusion. MACHINE PACKAGER: Karolina Saleh RDCS
== END | disposition home or self-care (01) ==
LOC: RADECHMAIN 11:56
PROVIDERS: ATTEND Family Medicine
DX: I08.1 Rheumatic disorders of both mitral and tricuspid valves (principal); Z98.82 Breast implant status
CPT/HCPCS: 93306

== ENCOUNTER → 2021-02-22 | Outpatient (CLI) | payer OTHER ==
--- NOTE | 2021-02-23 13:57 | SFUN ---
SLEEP CENTER FOLLOW UP NOTE DATE OF SERVICE: 02/22/2021 This 55-year-old lady has been followed in Sleep Center for treatment of significant excessive daytime sleepiness. Recently the patient had a polysomnogram with multiple sleep latency test. The patient came in to discuss results of the sleep studies and following plan. I discussed the results of her sleep studies with the patient in detail. Polysomnogram did not show any significant abnormalities of respiration; apnea-hypopnea index only 0.7 and oxygen level was above 90%, which is totally normal. No periodic limb movements have been documented also. Patient slept during the test for 7 hours 41 minutes. Multiple sleep latency test on the following day showed short sleep latency; mean sleep latency from 4 naps 5.3 minutes and from 5 naps 6.1 minutes. No sleep-onset REM periods have been documented. Results indicate hypersomnia, possibly narcolepsy without cataplexy. Patient continues to feel sleepiness during the day. [place] Sleepiness Scale today is in very high range at 19. MEDICATIONS: 1. Pristiq 50 mg once a day. 2. Hydroxyzine 25 mg 1-2 times a day as needed. PHYSICAL EXAMINATION: GENERAL APPEARANCE: Pleasant patient in no distress. VITAL SIGNS: BP 117/76, HR 72, RR 15, weight 154 pounds, temperature 97.8, oxygen saturation at room air 97%. HEENT: PERRLA, EOMI, evaluation of oropharynx showed tongue protrudes midline. Low position of soft palate. NECK: Supple, no JVD. Thyroid is not palpable. LUNGS: Clear to percussion and to auscultation. Good air exchange. No wheezing or rhonchi. HEART: S1, S2 regular. No murmurs, gallops, or rubs. ABDOMEN: Soft and nontender. Bowel sounds are present. No organomegaly appreciated. EXTREMITIES: No clubbing or cyanosis. PHYSICAL EDUCATION SPECIALIST: Awake, alert, and oriented X3. Cranial nerves 2 to 7 intact. There is no fasciculation or atrophy. noted. No focal deficits observed. IMPRESSION: 1. No respiratory abnormalities during the sleep study. 2. No periodic limb movements during the sleep test. 3. Multiple sleep latency test confirmed significant sleepiness in the range of 5.3 minutes for 4 naps and 6.1 minutes for 5 naps, which is sufficient for diagnosis of narcolepsy by sleep latency. No sleep-onset REM periods, though, have been documented. Possibly idiopathic hypersomnia. 4. History of depression. 5. History of anxiety. 6. Seasonal allergies. 7. Mitral valve prolapse. 8. Acid reflux. 9. History of left breast carcinoma, status post left-sided mastectomy. 10.Status post hysterectomy. 11.Status post appendectomy. PLAN: 1. I will start the patient with medications to prevent her daytime sleepiness. We will start with Adderall 5 mg in the morning and in the early afternoon. 2. Sleep hygiene with regular time in bed for at least 7-1/2 to 8 hours. 3. Precautions related to driving. No driving if feeling sleepiness. 4. Daytime naps permitted. 5. Follow-up visit in 2 months for possible adjustments in dose of medications and to check clinical response on treatment. Thank you very much for allowing me to participate in the management of your patient. Sincerely, Jesus Helms MD, PhD, FAASM Diplomat of [place] [employer] Sleep Medicine Board of [place] [employer] Security Developer of [facility] [place] MMODL / YOUNGN: [id number] /
== END ==
LOC: SLEEP 16:26
PROVIDERS: ATTEND Internal Medicine
DX: G47.10 Hypersomnia, unspecified (principal); F32.9 Major depressive disorder, single episode, unspecified; F41.9 Anxiety disorder, unspecified; J30.2 Other seasonal allergic rhinitis; I34.1 Nonrheumatic mitral (valve) prolapse; Z90.12 Acquired absence of left breast and nipple; Z85.3 Personal history of malignant neoplasm of breast; Z90.711 Acquired absence of uterus with remaining cervical stump; Z90.49 Acquired absence of other specified parts of digestive tract; Z87.891 Personal history of nicotine dependence

== ENCOUNTER → 2021-03-27 | Outpatient (CLI) | payer OTHER ==
--- NOTE | 2021-03-27 16:29 | US ---
EXAMINATION TYPE: US carotid duplex BILAT DATE OF EXAM: 03/27/2021 COMPARISON: NONE CLINICAL HISTORY: R42 DIZZINESS AND GIDDINESS. Pt states dizziness and loss of balance EXAM MEASUREMENTS: RIGHT: Peak Systolic Velocity (PSV) cm/sec ----- Right CCA: 93.1 ----- Right ICA: 108 ----- Right ECA: 139 ICA/CCA ratio: 1.2 RIGHT: End Diastole cm/sec ----- Right CCA: 51.0 ----- Right ICA: 46.0 ----- Right ECA: 23.0 LEFT: Peak Systolic Velocity (PSV) cm/sec ----- Left CCA: 97.8 ----- Left ICA: 129 ----- Left ECA: 118 ICA/CCA ratio: 1.3 LEFT: End Diastole cm/sec ----- Left CCA: 33.6 ----- Left ICA: 57.1 ----- Left ECA: 20.4 VERTEBRALS (direction of flow): Right Vertebral: Antegrade Left Vertebral: Antegrade Rhythm: Normal No significant stenosis seen Grayscale images show no significant focal plaque. IMPRESSION: No hemodynamically significant stenosis in either internal carotid artery. Criteria for Assigning % of Stenosis / Diameter reduction (Estimation based on the indirect measurements of the internal carotid artery velocities (ICA PSV). 1. Normal (no stenosis)=ICA PSV < 125 cm/s: ratio < 2.0: ICA EDV<40 cm/s. 2. Less than 50% stenosis=ICA PSV < 125 cm/s: ratio < 2.0: ICA EDV<40 cm/s. 3. 50 to 69% stenosis=ICA PSV of 125 to 230 cm/s: ration 2.0 ? 4.0: ICA EDV 40-100 cm/s. 4. Greater than 70% stenosis to near occlusion= ICA PSV > 230 cm/s: ratio > 4.0: ICA EDV > 100 cm/s. 5. Near occlusion= ICA PSV velocities may be low or undetectable: variable ratio and ICA EDV. 6. Total occlusion=unable to detect flow.
== END | disposition home or self-care (01) ==
LOC: RADUSWWP 15:44
PROVIDERS: ATTEND Family Medicine
DX: R42 Dizziness and giddiness (principal); H53.9 Unspecified visual disturbance; G44.229 Chronic tension-type headache, not intractable
CPT/HCPCS: 93880